=== PATIENT | female | born 1965 | race Caucasian/White ===

== ENCOUNTER 2019-07-11 06:57 | Day surgery (SDC) | payer OTHER ==
[~2019-07-11 06:57] MED LIST: Lactated Ringers 1,000 ML IV SCH; Lidocaine 1%/Sod Bicarbonate in NS 8.4% 1 ML Syringe IDERM PRN; Sodium Chloride 0.9% 10 ML Syringe FLUSH PRN
[2019-07-11] MEDS ORDERED: Midazolam 1 MG/ML 2 ML SDV ONE (07:32)
[2019-07-11] MEDS ORDERED: fentaNYL 100 MCG/2 ML SDV ONE (07:32)
[2019-07-11] MEDS ORDERED: Propofol 200 MG/20 ML SDV ONE ×3 (07:33→09:05)
[2019-07-11] MEDS ORDERED: Lidocaine 1% 4 ML ONE (07:35)
[2019-07-11] MEDS ORDERED: Labetalol 100 MG/20 ML MDV ONE (07:55)
--- NOTE | 2019-07-11 08:39 | PCM48HPAN ---
Post Anesthesia Note - EVALUATION WITHIN 48HRS OF ANESTHETIC Vital Signs in Normal Range: Yes Patient Participated in Evaluation: Yes Respiratory Function Stable: Yes Airway Patent: Yes Cardiovascular Function Stable: Yes Hydration Status Stable: Yes Pain Control Satisfactory: Yes Nausea and Vomiting Control Satisfactory: Yes Mental Status Recovered: Yes Vital Signs: Last Vital Signs Temp 36.2 C 07/11/19 07:05 Pulse 101 H 07/11/19 07:05 Resp 16 07/11/19 07:05 BP 200/121 H 07/11/19 07:05 Pulse Ox 98 07/11/19 07:05 - COMMENTS/OBSERVATIONS Free Text/Narrative:: no anesthesia complications noted
--- NOTE | 2019-07-11 08:39 | PCM.PRNOTE ---
- Free Text/Narrative Note: Date: 07/11/2019 Procedure: screening colonoscopy Endoscopist: Buck Garcia MD Findings: Prep was excellent. appendiceal orifice visualized. Small hyperplastic -appearing polyp in sigmoid, with larger pedunculated polyp at the proximal rectum. Mild diverticular disease. Minor rectal prolapse. Detailed Report: The patient was taken to the endoscopy suite and placed in left lateral decubitus position. Time out was performed and monitored anesthesia care initiated. Visual inspection was significant for minor rectal mucosal prolapse. Digital rectal exam was unremarkable. The colonoscope was lubricated and inserted anally. The scope was advanced with ease to the appendiceal orifice. Prep was excellent. The scope was slowly withdrawn and mucosal surfaces carefully inspected. A small hyperplastic-appearing polyp in the sigmoid was biopsied with cold forceps. At about 15 cm from the anal verge, a 1 cm pedunculated polyp was identified. Snare polypectomy with monopolar energy was performed and the polyp retrieved. Minor diverticular disease was noted in the sigmoid. No significant pathology noted on retroflexion of the scope within the rectum. Air was evacuated and the colonoscope completely withdrawn. The patient tolerated the procedure well. Buck Garcia MD General Surgery
--- NOTE | 2019-07-11 09:29 | PCM.PREANE ---
Preanesthetic Assessment - Procedure Proposed Procedure: Colonoscopy - Anesthesia/Transfusion/Family Hx Anesthesia History: No Prior Anesthesia Family History of Anesthesia Reaction: No Transfusion History: No Prior Transfusion(s) - Review of Systems General: No Symptoms Pulmonary: No Symptoms Cardiovascular: No Symptoms, Other (HTN) Gastrointestinal: No Symptoms Neurological: No Symptoms Other: Reports: Diabetes (check 122 @ 0730) - Physical Assessment NPO Status Date: 07/11/19 NPO Status Time: 04:10 Vital Signs: Last Vital Signs Temp 36.1 C 07/11/19 08:35 Pulse 76 07/11/19 08:35 Resp 14 07/11/19 08:35 BP 122/77 07/11/19 08:35 Pulse Ox 98 07/11/19 08:35 Height: 1.65 m Weight: 86.636 kg ASA Class: 2 Mental Status: Alert & Oriented x3 Airway Class: Mallampati = 1 Dentition: Reports: Normal Dentition, [place](s), Bridge Thyro-Mental Finger Breadths: 3 Mouth Opening Finger Breadths: 3 ROM/Head Extension: Full Lungs: Clear to Auscultation, Normal Respiratory Effort Cardiovascular: Regular Rate, Regular Rhythm - Lab Values: Laboratory Last Values POC Glucose 122 mg/dL (70-105) H 07/11/19 07:30 SARS Virus RNA (PCR) Negative (NEGATIVE) 07/07/19 16:04 - Allergies Allergies/Adverse Reactions: Allergies Allergy/AdvReac Type Severity Reaction Status Date / Time liraglutide [From Victoza] Allergy anorexia Verified 07/10/19 08:41 - Blood Blood Available: No Product(s) Available: None - Anesthesia Plan Pre-Op Medication Ordered: None - Acknowledgements Anesthesia Type Planned: MAC Pt an Appropriate Candidate for the Planned Anesthesia: Yes Alternatives and Risks of Anesthesia Discussed w Pt/Guardian: Yes Pt/Guardian Understands and Agrees with Anesthesia Plan: Yes PreAnesthesia Questionnaire - SUBSTANCE USE Smoking Status *Q: Never Smoker Tobacco Use Within Last Twelve Months: No Second Hand Smoke Exposure: No Days Per Week of Alcohol Use: 0 Number of Drinks Per Day: 0 Total Drinks Per Week: 0 Recreational Drug Use History: No - HOME MEDS Home Medications: Home Meds Aspirin [Low Dose Aspirin EC] 81 mg PO DAILY 07/11/19 [History] Insulin Glargine,Hum.Rec.Anlog [Basaglar Kwikpen U-100] 38 units SUBCUT DAILY [History] NIFEdipine [Nifedipine ER] 30 mg PO DAILY 07/11/19 [History] Omeprazole Magnesium [Prilosec Otc] 20 mg PO DAILY 07/11/19 [History] Simvastatin 40 mg PO DAILY 07/11/19 [History] lisinopriL [Lisinopril] 2.5 mg PO DAILY 07/11/19 [History] metFORMIN [Glucophage] 1,000 mg PO BID 07/11/19 [History] - CURRENT (IN HOUSE) MEDS Current Meds: Current Medications Lactated Ringer's (Ringers, Lactated) 1,000 mls @ 125 mls/hr IV ASDIRECTED MAIKOL Stop: 07/11/19 23:00 Last Admin: 07/11/19 07:15 Dose: 125 mls/hr Lidocaine/Sodium Bicarbonate (Buffered Lidocaine 1% In Ns 8.4%) 0.25 ml IDERM ONETIME PRN PRN Reason: Prior to IV Start Stop: 07/11/19 18:00 Last Admin: 07/11/19 07:14 Dose: 0.25 ml Sodium Chloride (Saline Flush) 10 ml FLUSH ASDIRECTED PRN PRN Reason: Keep Vein Open Stop: 07/11/19 18:00 Discontinued Medications Fentanyl (Sublimaze) Confirm Administered Dose 100 mcg .ROUTE .STK-MED ONE Stop: 07/11/19 07:33 Lidocaine HCl (Xylocaine-Mpf 1%) Confirm Administered Dose 4 mls @ as directed .ROUTE .STK-MED ONE Stop: 07/11/19 07:36 Labetalol HCl (Normodyne) Confirm Administered Dose 100 mg .ROUTE .STK-MED ONE Stop: 07/11/19 07:56 Midazolam HCl (Versed 1 Mg/Ml) Confirm Administered Dose 2 mg .ROUTE .STK-MED ONE Stop: 07/11/19 07:33 Propofol (Diprivan 20 Ml) Confirm Administered Dose 200 mg .ROUTE .STK-MED ONE Stop: 07/11/19 07:34 Propofol (Diprivan 20 Ml) Confirm Administered Dose 200 mg .ROUTE .STK-MED ONE Stop: 07/11/19 08:09 Propofol (Diprivan 20 Ml) Confirm Administered Dose 200 mg .ROUTE .STK-MED ONE Stop: 07/11/19 09:06
== END 2019-07-11 09:15 | disposition home or self-care (01) ==
LOC: JD.SDS 06:57
PROVIDERS: ATTEND Surgery
DX: Z12.11 Encounter for screening for malignant neoplasm of colon (principal); D12.8 Benign neoplasm of rectum; I10 Essential (primary) hypertension; Z11.59 Encounter for screening for other viral diseases; E78.5 Hyperlipidemia, unspecified; E11.9 Type 2 diabetes mellitus without complications; Z88.8 Allergy status to other drugs, medicaments and biological substances; Z79.82 Long term (current) use of aspirin; Z79.84 Long term (current) use of oral hypoglycemic drugs; Z79.899 Other long term (current) drug therapy
CPT/HCPCS: 45380; 45385; 82962; 87635; J2001; J2250; J2704; J3010; J3490; J7120; 00812; U0002

== ENCOUNTER 2023-03-02 08:58 | Emergency (ER) | payer OTHER ==
[2023-03-02] MEDS ORDERED: Sodium Chloride 0.9% 10 ML Syringe FLUSH PRN (09:53)
[2023-03-02 10:31] LABS: BASOPHILS ABSOLUTE AUTO 0.1 K/mm3 (0.0-0.2); BASOPHILS PERCENT AUTO 0.9 % (0.0-1.0); EOSINOPHILS ABSOLUTE AUTO 0.1 K/mm3 (0.0-0.4); EOSINOPHILS PERCENT AUTO 0.5 % (0.0-6.0); HEMATOCRIT 41.3 % (37.0-47.0); HEMOGLOBIN 13.8 gm/dl (12.0-16.0); IMMATURE GRAN ABSOLUTE AUTO 0.03 K/mm3 (0.00-0.05); IMMATURE GRAN PERCENT AUTO 0.3 % (0.0-0.4); LYMPHOCYTES ABSOLUTE AUTO 2.6 K/mm3 (1.0-4.8); LYMPHOCYTES PERCENT AUTO 27.4 % (24.0-44.0); MEAN CORPUSCULAR HEMOGLOBIN 29.6 pg (28.0-32.0); MEAN CORPUSCULAR HGB CONC 33.4 g/dl (32.0-36.0); MEAN CORPUSCULAR VOLUME 88.4 fl (83.0-99.0); MEAN PLATELET VOLUME 9.5 fl (9.4-12.3); MONOCYTES ABSOLUTE AUTO 1.6 K/mm3 (0.0-0.8); MONOCYTES PERCENT AUTO 16.7 % (0.0-8.0); NEUTROPHILS ABSOLUTE AUTO 5.2 K/mm3 (1.8-7.7); NEUTROPHILS PERCENT AUTO 54.2 % (41.0-71.0); PLATELET COUNT,PLT 394 K/mm3 (150-400); RED BLOOD CELL COUNT 4.67 M/mm3 (4.10-5.30)
[2023-03-02] MEDS ORDERED: Sodium Chloride 0.9% 1,000 ML IV ONE (10:43)
[2023-03-02 10:45] LABS: CORONAVIRUS COVID-19 NAA POSITIVE (NEGATIVE); INFLUENZA A NAA NEGATIVE (NEGATIVE); RESPIRATORY SYNCYTIAL VIR NAA NEGATIVE (NEGATIVE)
[2023-03-02 10:47] LABS: A/G RATIO 0.9 (1-2); ALBUMIN 3.7 g/dl (3.4-5.0); ANION GAP 15.6 (5-15); BILIRUBIN TOTAL 0.3 mg/dL (0.2-1.0); BUN/CREATININE RATIO 13.8 (14-18); CALCIUM 9.4 mg/dL (8.5-10.1); CREATININE 1.6 mg/dL (0.55-1.02); EST CRCL DRUG DOSING (CG) 32.09 mL/min; MAGNESIUM 1.2 mg/dL (1.8-2.4); POTASSIUM,K 3.6 mEq/L (3.5-5.1); PROTEIN TOTAL,TP 7.9 g/dl (6.4-8.2)
[2023-03-02 11:06] LABS: SLIDE REVIEW ABNORMAL SMEAR
[2023-03-02 11:29] LABS: APPEARANCE,URINE CLEAR (Clear); BILIRUBIN,URINE NEGATIVE (Negative); COLOR,URINE YELLOW (Yellow); GLUCOSE,URINE TRACE (Negative); KETONES,URINE NEGATIVE (Negative); LEUKOCYTE ESTERASE,URINE NEGATIVE (Negative); NITRITE,URINE NEGATIVE (Negative); OCCULT BLOOD,URINE NEGATIVE (Negative); PROTEIN,URINE NEGATIVE (Negative); UROBILINOGEN,URINE 0.2 (0.2-1.0)
[2023-03-02] MEDS ORDERED: Magnesium Sulfate/Water 2 GM in Premix Bag 1 BAG IV ONE (11:36)
[2023-03-02 12:06] LABS: BACTERIA,URINE FEW /hpf (FEW); EPITHELIAL CELLS,URINE 0-5 /hpf (0-5); MUCUS,URINE RARE /hpf (FEW); RBC,URINE 0-5 /hpf (0-5); WBC,URINE 0-5 /hpf (0-5)
== END 2023-03-02 13:59 | disposition home or self-care (01) ==
LOC: JD.ED 08:58
DX: U07.1 COVID-19 (principal); R55 Syncope and collapse; I10 Essential (primary) hypertension; E11.9 Type 2 diabetes mellitus without complications; Z88.8 Allergy status to other drugs, medicaments and biological substances; Z79.84 Long term (current) use of oral hypoglycemic drugs; Z79.82 Long term (current) use of aspirin; Z79.4 Long term (current) use of insulin; Z79.899 Other long term (current) drug therapy
CPT/HCPCS: 0241U; 36415; 80053; 81001; 82947; 83735; 85025; 93005; 96365; 96366; 99285; J3475; J3490; J7030; 93010; 99282